=== PATIENT | male | born 1990 | race Caucasian/White ===

== ENCOUNTER 2017-10-26 19:47 | Emergency (ER) | payer BC, SELFPAY ==
[2017-10-26 19:48] VITALS: BP 161/118; PULSE 80; RESP 16; TEMP 37.1; O2SAT 99; BMI 33.9
--- NOTE | 2017-10-26 21:52 | CT_ITS ---
STUDY: CT LUMBAR SPINE WITHOUT CONTRAST REASON FOR EXAM: Male, 27 years old. BACK PAIN AFTER BENDING OVER AND FELL TO THE GROUND,PT HAS CHRONIC BACK PAIN RADIATION DOSAGE (If Supplied By Facility): CTDIvol = ( 16.17 ) mGy, DLP = ( 457.56 ) mGycm TECHNIQUE: The patient was scanned in a multi detector CT scanner. High resolution transaxial imaging was performed. Sagittal and coronal images were reconstructed. Individualized dose optimization techniques were used for this CT. COMPARISON: None FINDINGS: Normal lumbar lordosis. There is no substantial scoliosis. Normal vertebrae of the lumbar spine. L1-2: Normal endplates. Normal disc height and morphology. Normal bilateral facet joints. Normal central canal and bilateral lateral recesses. Normal bilateral intervertebral neural foramina. L2-3: Normal endplates. Normal disc height and morphology. Normal bilateral facet joints. Normal central canal and bilateral lateral recesses. Normal bilateral intervertebral neural foramina. L3-4: Normal endplates. Normal disc height and morphology. Normal bilateral facet joints. Normal central canal and bilateral lateral recesses. Normal bilateral intervertebral neural foramina. L4-5: Normal endplates. Normal disc height and morphology. Normal bilateral facet joints. Normal central canal and bilateral lateral recesses. Normal bilateral intervertebral neural foramina. L5-S1: Normal endplates. Normal disc height and morphology. Normal bilateral facet joints. Normal central canal and bilateral lateral recesses. Normal bilateral intervertebral neural foramina. Normal visualized paraspinous soft tissue structures. CT/Spine Lumbar without Contrast IMPRESSION: Normal unenhanced CT examination of the lumbar spine. Electronically Signed: Sixto Mathews MD at 22:49 EDT , Service support ,
--- NOTE | 2017-10-26 21:52 | CT_ITS ---
STUDY: CT ABDOMEN AND PELVIS WITHOUT CONTRAST REASON FOR EXAM: Male, 27 years old. BACK PAIN AFTER BENDING OVER AND FELL TO THE GROUND,PT HAS HX BACK PAIN RADIATION DOSAGE (If Supplied By Facility): CTDIvol = ( 13.58 ) mGy, DLP = ( 776.99 ) mGycm TECHNIQUE: Transaxial images were obtained from the dome of the diaphragm to the symphysis pubis without oral contrast, and without intravenous contrast. Sagittal and coronal images were reconstructed. Individualized dose optimization techniques were used for this CT. COMPARISON: None. FINDINGS: The visualized lung bases are unremarkable. The visualized portions of the heart are within normal limits. Normal liver. Normal gallbladder and extrahepatic biliary system. Normal spleen. Normal pancreas. Normal bilateral adrenal glands. Normal right kidney. Normal left kidney. Normal visualized stomach. Normal small intestine. Normal colon. The appendix is visualized and appears normal. Normal abdominal aorta. Normal inferior vena cava. Normal retroperitoneum. Normal urinary bladder. Normal visualized prostate gland. Normal abdominal wall. Normal osseous structures. CT/Abdomen/Pelvis without Cont IMPRESSION: Normal unenhanced CT of the abdomen and pelvis. Electronically Signed: Sixto Mathews MD at 22:54 EDT , Service support ,
[2017-10-26] MEDS: Ondansetron 4 MG/2 ML Vial IV (22:03)
[2017-10-26] MEDS: morphine 8 MG/ML Syringe IV (22:03)
--- NOTE | 2017-10-26 22:42 | ED.DCSUM_ITS ---
- ER Visit Summary Date of Service: 10/26/17 Chief Complaint: Back pain History of Present Illness: The patient is a 27 M presenting with back pain ?2 weeks. 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 He has pain in his low back radiating to both legs. Denies bowel or bladder incontinence. He tried Advil at home with minimal relief. Pain is in the lower back. He denies fever. Also complains of bilateral groin pain. Denies nausea or vomiting. Physical Examination: Vitals are stable. Patient is afebrile. Alert no acute distress. HEENT exam is unremarkable. Neck is supple. Lungs are clear and equal bilaterally. Heart is regular rate and rhythm. Abdomen is soft nontender nondistended. No guarding or rebound. Bilateral inguinal tenderness with no hernia palpated Back: diffuse lumbar and paraspinal tenderness, no stepoff Extremities are unremarkable. Skin is warm and dry. No focal neurologic deficit. Remainder of exam is unremarkable. Emergency Department Course and Treatment: Patient is given morphine, Zofran IV with improvement. CT lumbar spine shows no acute process. CT abdomen pelvis shows no acute process. Patient given short course of [place] and advised to continue nsaids at home. Advised to follow-up with his primary care physician. Advised return to ED for any worsening complaints. Disposition: Discharge home Impression: Lumbar strain This note was generated with [employer] [place] dictation software. It may contain incorrect words, spelling, and punctuation that were not noted in review of the chart prior to signing ED Disposition - Plan for ED Patient: Chief Complaint: Back Referrals: Shiraz Arredondo [Primary Care Provider] -
--- NOTE | 2017-10-26 23:07 | DCINST.ED_ITS ---
ED Disposition - Plan for ED Patient: Chief Complaint: Back Instructions: ED Neck Back Pain General Prescriptions: Hydrocodone Bitart/Apap 5-325 [[place] 5/325] 1 tablet PO Q6H PRN PRN 2 Days #8 tablet PRN Reason: Pain Referrals: Shiraz Arredondo [Primary Care Provider] -
[2017-10-26 23:16] VITALS: BP 163/101; PULSE 48; RESP 14; O2SAT 95
== END 2017-10-26 23:33 | disposition home or self-care (01) ==
PROVIDERS: Emergency Provider Emergency Medicine; Family Provider Nurse Practitioner Family; PCP Nurse Practitioner Family
DX: S39.012A Strain of muscle, fascia and tendon of lower back, initial encounter (principal); X50.1XXA Overexertion from prolonged static or awkward postures, initial encounter; Y93.9 Activity, unspecified; Y92.9 Unspecified place or not applicable; Y99.9 Unspecified external cause status
CPT/HCPCS: 72131; 74176; 96374; 96375; 99283; A4216; J2405

== ENCOUNTER 2019-11-20 20:41 | Emergency (ER) | payer OTHER, SELFPAY ==
[2019-11-20 20:42] VITALS: BP 89/40; PULSE 63; RESP 18; TEMP 36.3; O2SAT 100; BMI 34.4
--- NOTE | 2019-11-20 21:14 | CT_ITS ---
STUDY: CT ABDOMEN AND PELVIS WITHOUT CONTRAST REASON FOR EXAM: Male, 29 years old. N/V AND ABD PAIN SINCE NOON RADIATION DOSAGE (If Supplied By Facility): CTDIvol = ( 9.73 ) mGy, DLP = ( 530.04 ) mGycm TECHNIQUE: Transaxial images were obtained from the dome of the diaphragm to the symphysis pubis without oral contrast, and without intravenous contrast. Sagittal and coronal images were reconstructed. Individualized dose optimization techniques were used for this CT. COMPARISON: CT abdomen and pelvis without contrast October 26, 2017. FINDINGS: The visualized lung bases are unremarkable. Heart size is upper normal. Normal liver. The portal vein diameter is 14 mm. Normal gallbladder and extrahepatic biliary system. The diameter of the common bile duct is 5 mm. Normal spleen. Normal pancreas. Normal bilateral adrenal glands. Normal right kidney. Normal left kidney. No hydronephrosis. Normal visualized stomach. Normal small intestine. Normal colon. The short appendix or appendiceal stump is visualized (series 2 image 102, series 602 images 35-39) and appears normal. There are numerous stable, nonspecific subcentimeter mesenteric lymph nodes. Normal abdominal aorta. Normal inferior vena cava. There is stable nonspecific periaortic lymph nodes of the retroperitoneum. Normal urinary bladder. Normal visualized prostate gland. Normal abdominal wall. There is early disc height narrowing at L5-S1. CT/Abdomen/Pelvis without Cont IMPRESSION: Essentially normal unenhanced CT of the abdomen and pelvis, unchanged. Electronically Signed: Sanford Deleon MD at 22:41 EDT , Service support ,
[2019-11-20 21:28] LABS: Absolute Lymphocyte Count 0.55 X10^3/uL (0.83-4.51); Absolute Neutrophil Count 9.9 X10^3/uL (2.0-7.7); Basophil# 0.04 X10^3/uL; Basophil% 0.4 % (0-1); Eosinophil# 0.04 X10^3/uL; Eosinophils% 0.4 % (0-5); Hematocrit 49.1 % (40-54); Hemoglobin 16.4 g/dL (13.0-16.5); Lymphocyte # 0.55 X10^3/ul (4.0); Mean Corp Hgb Conc 33.4 g/dL (32-36); Mean Corpuscular Hgb 29.8 pg (27.0-32.0); Mean Corpuscular Volume 89.3 fL (80-94); Mean Platelet Vol. 10.3 fl (6.2-12.0); Monocyte# 0.46 X10^3/uL; Monocyte% 4.2 % (0-10); NRBC Flagged by Analyzer 0 % (0-5); Neutrophil # 9.92 X10^3/uL (2.7-7.7); Neutrophil % 89.7 % (47-70); POSITIVE DIFFERENTIAL YES; Platelet Count 226 K/mm3 (150-450); RBC Distribution Width CV 12.7 % (11.6-14.6); RBC Distribution Width SD 41.1 fl (35.1-43.9)
[2019-11-20 21:44] LABS: Anion Gap 6 (5-15); BUN 19 mg/dL (7-18); Calcium,Total 9.1 mg/dL (8.5-10.1); Chloride 110 mmol/L (98-107); Creatinine, Serum 1.12 mg/dL (0.70-1.30); EST Glomerular Filtration Rate 81 mL/min (>60); Est Glom Filt Rate - Afr Amer 98 mL/min (>60); Estimated Creatinine Clearance 98.67 ml/min; Glucose 114 mg/dL (74-106); Sodium Level 142 mmol/L (136-145)
[2019-11-20 21:46] LABS: Differential Indicated SCAN CRITERIA MET
[2019-11-20] MEDS: Morphine 4 MG/ML Syringe IV (21:56)
[2019-11-20] MEDS: 0.9% Normal Saline 1,000 ML 1000 ML IV (21:56)
[2019-11-20] MEDS: Ondansetron 4 MG/2 ML Vial IV (21:56)
[2019-11-20 22:04] LABS: Differential Comment SCANNED
[2019-11-20 22:32] LABS: Bacteria 0 SEEN /hpf (None Seen); Mucous, Urine 0 SEEN /hpf (<or=2+); Red Blood Cells-Urine 0 SEEN /hpf (0-5); Squamous Epithelial Cells - UA 0 SEEN /hpf (0-5)
[2019-11-20 22:34] LABS: Color, Urine Yellow (Yellow); Glucose, Dipstick Normal (Normal); Ketone-Dipstick 5 mg/dl (Negative); Leukocyte Esterase-Dipstick Negative /ul (Negative); Nitrite-Dipstick Negative (Negative); Occult Blood-Urine Negative /ul (Negative); Protein-Dipstick 15 mg/dl (Negative); Specific Gravity, Urine 1.025 (1.002-1.030); Urine Bilirubin Dipstick 1 mg/dL (Negative); Urine Clarity Clear (Clear); Urine Urobilinogen Normal (Normal)
[2019-11-20 22:41] LABS: White Blood Cells 0-5 SEEN /hpf (0-5)
--- NOTE | 2019-11-20 22:47 | ED.DCSUM_ITS ---
- ER Visit Summary Date of Service: 11/20/19 Chief Complaint: Abdominal pain History of Present Illness: The patient is a 29 M who sees Shiraz Williamson. He reports that he has lower abdominal pain that began at noon is gradually gotten worse. Said cramping, aching pain is now 10 at worst 3-10 currently. Is worsened by water. Unchanged with movement. Nothing makes this better. He has had nausea and vomited multiple times. No blood in his emesis. No diarrhea. His last bowel was yesterday. No dysuria or frequency. Patient denies sick contacts. Has not been camping out of the country. No possible bad food exposure. Does drink well water, but others at home do as well and they are not ill. No recent antibiotic use. Physical Examination: Vitals: Stable. Afebrile. General: Well-nourished and well-developed. Head: Normocephalic atraumatic. Neck: Supple, no lymphadenopathy. No JVD. Nontender. Cardiovascular: Regular rate and rhythm. No murmurs. Respiratory: No respiratory distress. Clear to auscultation bilaterally. Abdominal: Soft, mild suprapubic and right lower quadrant tenderness to palpation, nondistended, normal bowel sounds. No guarding, rebound, or peritoneal signs. Back: Nontender. Extremities: Nontender, no edema. Skin: Normal color, no rash. Neurologic: Alert and oriented ?3. Cranial nerves II through XII are intact. Normal strength and sensation. Psych: Normal affect. Test Results: CBC shows segmented neutrophils of 90 and lymphocytes of 5. Chem- 7 shows a chloride of 110, glucose 114, BUN of 19. UA is negative. Clinical Impression(s) from Imaging Studies Abdomen/Pelvis CT 11/20/19 21:14 IMPRESSION: Essentially normal unenhanced CT of the abdomen and pelvis, unchanged. Electronically Signed: Sanford Deleon MD at 22:41 EDT , Service support , Emergency Department Course and Treatment: Patient was treated morphine and Zofran IV. He is resting comfortably. He has had no further vomiting while here. Is given a liter normal saline. Treatment Plan: Patient be discharged with Zofran. Instructed follow-up his primary care physician 1 to 2 days if not improving. Return to the emergency department for any worsening symptoms. Disposition: To home in improved and stable condition. Impression: 1 1. Mesenteric adenitis. 2. Vomiting. This note was generated with [employer] dictation software. It may contain incorrect words, spelling, and punctuation that were not noted in review of the chart prior to signing ED Disposition - Plan for ED Patient: Disposition: Home or Assisted Living Instructions: ED Adenitis Mesenteric Prescriptions: Ondansetron [Zofran Odt] 4 mg PO Q8H PRN PRN #10 tab PRN Reason: Nausea Prescription Printed Referrals: Shiraz Arredondo, [facility] [employer] [facility] [Primary Care Provider] - 1-2 Days if not improving
[2019-11-20 23:03] VITALS: BP 110/60; PULSE 74; RESP 16; O2SAT 97
== END 2019-11-20 23:09 | disposition home or self-care (01) ==
LOC: ED 23:09
PROVIDERS: Emergency Provider Emergency Medicine; PCP Nurse Practitioner Family
DX: I88.0 Nonspecific mesenteric lymphadenitis (principal)
CPT/HCPCS: 74176; 80048; 81001; 85025; 96361; 96374; 96375; 99283; J7030; A4216; J2405

== ENCOUNTER 2021-02-04 16:45 | Emergency (ER) | payer OTHER, SELFPAY ==
[2021-02-04] VITALS (7 sets, daily range): BP systolic 136–166; BP diastolic 82–100; PULSE 65–81; RESP 16–20; TEMP 36.6; O2SAT 94–99; BMI 35.0
--- NOTE | 2021-02-04 17:16 | EKG12_ITS ---
Test Reason : CP Blood Pressure : / mmHG Vent. Rate : 069 BPM Atrial Rate : 069 BPM P-R Int : 204 ms QRS Dur : 106 ms QT Int : 378 ms P-R-T Axes : 006 -64 005 degrees QTc Int : 405 ms Normal sinus rhythm Left axis deviation Inferior infarct , age undetermined Anterior infarct , age undetermined , cannot be excluded Abnormal ECG Confirmed by WALTER WAN, QUIANA ([id number]), market editor STEPHANIE MESSINA ([id number]) on 02/06/2021 12:38:17 PM Referred By: PL/SHANE Confirmed By:QUIANA WATSON MD
[2021-02-04] MEDS: Aspirin 81 MG TAB.CHEW 324 MG PO (17:36)
--- NOTE | 2021-02-04 17:44 | RAD_ITS ---
INDICATION: chest pain EXAMINATION/TECHNIQUE: X-RAY - XR Chest 1 View COMPARISON: None. FINDINGS: The lungs are clear. The heart is borderline enlarged. No pleural effusion or pneumothorax. No acute osseous abnormalities. RAD/Chest 1 View (Portable) IMPRESSION: No acute radiographic abnormalities. Borderline cardiomegaly. Electronically Signed: Roberto Churchill MD at 18:22 EDT Tel , Service support ,
[2021-02-04 17:58] LABS: Absolute Lymphocyte Count 1.86 X10^3/uL (0.83-4.51); Absolute Neutrophil Count 5.7 X10^3/uL (2.0-7.7); Basophil# 0.08 X10^3/uL; Basophil% 0.9 % (0-1); Eosinophil# 0.37 X10^3/uL; Eosinophils% 4.1 % (0-5); Hematocrit 44.4 % (40-54); Hemoglobin 15.2 g/dL (13.0-16.5); Lymphocyte # 1.86 X10^3/ul (0.83-4.51); Lymphocyte % 20.6 % (19-41); Mean Corp Hgb Conc 34.2 g/dL (32-36); Mean Corpuscular Hgb 30.4 pg (27.0-32.0); Mean Corpuscular Volume 88.8 fL (80-94); Mean Platelet Vol. 10.4 fl (6.2-12.0); Monocyte# 0.95 X10^3/uL; Monocyte% 10.5 % (0-10); NRBC Flagged by Analyzer 0 % (0-5); Neutrophil # 5.74 X10^3/uL (2.7-7.7); Neutrophil % 63.3 % (47-70); Platelet Count 259 K/mm3 (150-450); RBC Distribution Width CV 12.5 % (11.6-14.6); RBC Distribution Width SD 40.6 fl (35.1-43.9); White Blood Count 9.1 K/mm3 (4.4-11.0)
[2021-02-04 18:00] LABS: Anion Gap 5 (5-15); BUN 15 mg/dL (7-18); BUN/Creat Ratio 15.4 RATIO (10-20); Calcium,Total 8.8 mg/dL (8.5-10.1); Chloride 108 mmol/L (98-107); Creatinine, Serum 0.97 mg/dL (0.70-1.30); EST Glomerular Filtration Rate 95 mL/min (>60); Est Glom Filt Rate - Afr Amer 115 mL/min (>60); Estimated Creatinine Clearance 116.44 ml/min; Glucose 98 mg/dL (74-106); Potassium 3.8 mmol/L (3.5-5.1); Sodium Level 140 mmol/L (136-145); Troponin-I HS 3.5 pg/mL (3.0-78.5)
--- NOTE | 2021-02-04 18:25 | ED.VIS.CHEST ---
HPI History of Present Illness Chief Complaint: Chest Pain Narrative Narrative: Patient complains of pain. He describes it as mid lower sternal. Is worse if he moves or twists. He feels a little bit as though it is hard to take of full breath but he is not really short of breath. He has no nausea vomiting or diaphoresis. Of note, this patient was kicked off his horse about 6 days ago. He has been sore everywhere since but has been slowly getting better. He does not recall this is a specific area of pain but he also does not state that he did not have this area of pain. Nothing specifically makes it better other than laying on his left side. He denies history of smoking. No hemoptysis. Patient evidently does have some family history of blood clots but the details are not known. He has no other known risk factor for blood clots. This was a concern of his that with. PFSH PFSH Home Medications naproxen [Naprosyn] 500 mg PO BID PRN #20 tab 02/04/21 [Rx Last Taken Unknown] Allergy/AdvReac Type Severity Reaction Status Date / Time No Known Allergies Allergy Verified 02/04/21 16:47 Surgical History H/O left knee surgery Hx of tonsillectomy Social History Smoking Status: Never smoker ROS ROS ED Constitutional Constitutional ED: Denies fever(s) or sweats Eyes Eyes: Reports none; Denies change in vision ENT ENT ED: Denies sore throat Cardiovascular Cardiovascular: Reports as per HPI Respiratory/Chest Respiratory/Chest: Denies cough, dyspnea on exertion or sputum Gastrointestinal Gastrointestinal: Denies abdominal pain, nausea or vomiting Genitourinary Genitourinary ED: Denies hematuria Musculoskeletal Musculoskeletal: Reports arthralgias and myalgias Integumentary Denies rash Neurologic Neurologic: Denies headache(s) Endocrine Endocrinology: Denies polydipsia or polyuria Hematologic/Lymphatic Hematologic/Lymphatic: Denies easy bleeding or easy bruising EXAM Physical Exam Const Vital Signs: 02/04/21 16:45 02/04/21 16:53 02/04/21 17:18 Temperature 97.8 F Temperature Source Temporal Pulse Rate 69 Respiratory Rate 16 16 Respiratory Effort Normal Non-Labored Respiratory Pattern Normal Blood Pressure 166/100 H Blood Pressure Mean 122 Pulse Ox 94 97 Oxygen Delivery Method Room Air Room Air 02/04/21 17:45 02/04/21 18:00 02/04/21 19:33 Temperature Temperature Source Pulse Rate 67 81 70 Respiratory Rate 20 H 16 16 Respiratory Effort Respiratory Pattern Blood Pressure 151/96 H 140/91 H 162/82 H Blood Pressure Mean 114 107 108 Pulse Ox 97 95 99 Oxygen Delivery Method Room Air Room Air Room Air 02/04/21 21:12 Temperature Temperature Source Pulse Rate 65 Respiratory Rate 16 Respiratory Effort Respiratory Pattern Blood Pressure 136/90 H Blood Pressure Mean 105 Pulse Ox 96 Oxygen Delivery Method Room Air Positive well nourished and well developed General Appearance ED: well developed and NAD HEENT normocephalic and atraumatic; Negative for trauma or tenderness Eyes PERRL Neck no lymphadenopathy and supple Chest Wall inspection of chest normal Chest Narrative: Mild lower anterior chest tenderness but no significant tenderness. No subcu air. No crepitance. Chest: tenderness Resp normal respiratory effort and clear to auscultation bilaterally Resp Narrative: No indication of pain with a deep breath. There is no pleuritic component. Effort and Inspection: respiratory distress Cardio regular rate and regular rhythm GI normal to inspection, nondistended, normoactive bowel sounds, soft to palpation and non-tender Back/Spine no CVA tenderness Extremity normal to inspection General Extremety ED: Negative for edema or tenderness General Extremity: Negative for edema Neuro oriented x3 Sensorium / Orientation: awake and alert Psych mental status grossly normal Skin no rashes or lesions noted MDM MDM MDM Narrative Medical decision making narrative: Patient's blood work showed just minimally elevated D-dimer. Troponin was negative. X-ray showed no acute process. There is mild cardiomegaly. CT scan was done that showed a little bit of atelectasis and fluid. The dye load was not ideal. There is no indication of PE though. No indication dissection. Patient is actually PERC negative for PE. We did obtain evaluation due to his concerns and family history. But I think he has a secondary reason to have his symptoms. This would be getting kicked off a horse and having pain since then. I think this is likely traumatic. I think he is okay to go home. He will be given nonsteroidals. We did have a talk regarding reasons to return. Lab Data Labs: Laboratory Results - last 24 hr 07/19/21 07/19/21 07/19/21 17:00 17:00 17:38 WBC 9.1 RBC 5.00 Hgb 15.2 Hct 44.4 MCV 88.8 MCH 30.4 MCHC 34.2 RDW Std Deviation 40.6 RDW Coeff of Andry 12.5 Plt Count 259 MPV 10.4 Immature Gran % (Auto) 0.600 Neut % (Auto) 63.3 Lymph % (Auto) 20.6 [place] % (Auto) 10.5 H Eos % (Auto) 4.1 Baso % (Auto) 0.9 Absolute Neuts (auto) 5.7 Absolute Lymphs (auto) 1.86 Nucleated RBC % 0 D-Dimer Quant (PE/DVT) 0.65 H* Sodium 140 Potassium 3.8 Chloride 108 H Carbon Dioxide 27.0 Anion Gap 5 BUN 15 Creatinine 0.97 Estim Creat Clear Calc 116.44 Est GFR (MDRD) Af Amer 115 Est GFR (MDRD) Non-Af 95 BUN/Creatinine Ratio 15.4 Glucose 98 Calcium 8.8 Troponin I High Sens 3.5 Radiography Diagnostic Testing: Radiology Impression Chest X-Ray 02/04/21 17:44 IMPRESSION: No acute radiographic abnormalities. Borderline cardiomegaly. Electronically Signed: Roberto Churchill MD at 18:22 EDT Tel , Service support , Chest CTA 02/04/21 19:14 IMPRESSION: No evidence of aortic dissection. Small partially loculated fluid collection on the left with associated compressive atelectasis of the left lower lobe. Moderate cardiomegaly. Electronically Signed: Roberto Churchill MD at 19:51 EDT Tel , Service support , Discharge Plan Triage Chief Complaint: Chest Pain ED Provider: John Zamudio Dx/Rx/DC Orders Clinical Impression: Chest pain, Injury while horseback riding Instructions: ED Chest Wall Contusion Prescriptions: New naproxen [Naprosyn] 500 mg tablet 500 mg PO BID PRN (Reason: pain) Qty: 20 RF: 0 Primary Care Provider: Shiraz Arredondo NP Referrals: Shiraz Arredondo CRYSTAL GAZER, [facility] [Primary Care Provider] - 3-5 Days if not improving Disposition Disposition: Home, Self Care
[2021-02-04 18:58] LABS: D-Dimer Quantitative (DVT/PE) 0.65 FEU/ug/m (0.27-0.49)
--- NOTE | 2021-02-04 19:14 | CT_ITS ---
INDICATION: chest pain EXAMINATION: CTA Chest WO/W Contrast Injection TECHNIQUE: Helically acquired images were obtained of the chest following administration of IV contrast. A radiation dose optimization technique was used for this scan. 3D postprocessing images including MIPS were reviewed. IV Contrast dosage and agent: IV 100mL [id number] COMPARISON: None. FINDINGS: Lungs: Unremarkable Mediastinum: The heart is moderately enlarged. No mediastinal, hilar or axillary adenopathy. The thoracic aorta is unremarkable. No evidence of dissection. Cannot assess for pulmonary emboli due to contrast timing bolus. Pleura: Small partially loculated fluid collection on the left with associated compressive atelectasis of the left lung base. Bones/Soft tissues: No suspicious osseous or soft tissue lesions Upper abdomen: No visualized abnormalities in the upper abdomen. CT/CTA Chest W/WO Contrast IMPRESSION: No evidence of aortic dissection. Small partially loculated fluid collection on the left with associated compressive atelectasis of the left lower lobe. Moderate cardiomegaly. Electronically Signed: Roberto Churchill MD at 19:51 EDT Tel , Service support ,
== END 2021-02-04 21:51 | disposition home or self-care (01) ==
PROVIDERS: Emergency Provider Emergency Medicine; PCP Nurse Practitioner Family
DX: S20.219A Contusion of unspecified front wall of thorax, initial encounter (principal); V80.010A Animal-rider injured by fall from or being thrown from horse in noncollision accident, initial encounter; Y93.52 Activity, horseback riding; Y92.9 Unspecified place or not applicable; Y99.9 Unspecified external cause status; Z79.1 Long term (current) use of non-steroidal anti-inflammatories (NSAID)
CPT/HCPCS: 71045; 71275; 80048; 84484; 85025; 85379; 93005; 99285; Q9967; A4216

== ENCOUNTER 2021-05-20 12:59 | Emergency (ER) | payer OTHER, SELFPAY ==
[2021-05-20 13:00] VITALS: BP 141/106; PULSE 92; RESP 18; TEMP 35.8; O2SAT 94; BMI 33.5
[2021-05-20 14:46] VITALS: BP 157/105; PULSE 64; PULSE 67; RESP 18; RESP 21; TEMP 36.8; O2SAT 98
--- NOTE | 2021-05-20 15:16 | RAD_ITS ---
INDICATION: cough sob fever EXAMINATION/TECHNIQUE: X-RAY - XR Chest 1 View COMPARISON: 02/04/2021. FINDINGS: Scattered patchy airspace opacities. The heart is enlarged. No pleural effusion or pneumothorax. No acute osseous abnormalities. RAD/Chest 1 View (Portable) IMPRESSION: Scattered patchy airspace opacities concerning for pneumonia. Electronically Signed: Roberto Churchill MD at 16:52 EDT Tel , Service support ,
--- NOTE | 2021-05-20 15:16 | ED.VIS.DYS ---
HPI History of Present Illness Chief Complaint: Shortness of Breath Informant: patient Onset/Context/Timing Onset: Weeks (1) Context: gradual and onset Timing: Continuous Quality: Positive for Dyspnea on exertion Current Severity: Moderate Maximum Severity: Moderate Worsened by: Exertion and Coughing Relieved by: Rest Associated Symptoms cough Chest Pain: Positive for None Narrative Narrative: Patient presenting with respiratory symptoms, headaches, some diarrhea myalgias, fevers, chills, for the past week. He has also had loss of taste and smell. He has not been vaccinated for COVID-19. He has not done a test for Covid yet. He has no other medical problems. PFS PFS Medical History no medical history no medical history Home Medications azithromycin See Rx Instructions .ROUTE .COMPLEX #6 tab 05/20/21 [Rx Last Taken Unknown] Allergy/AdvReac Type Severity Reaction Status Date / Time No Known Allergies Allergy Verified 02/04/21 16:47 Surgical History (Updated 05/20/21 @ 14:48 by Francisco Simmons) H/O left knee surgery Hx of tonsillectomy Social History Smoking Status: Never smoker ROS ROS ED Constitutional Constitutional ED: Reports body ache(s), chills, fatigue, fever(s), headache(s) and malaise Eyes Eyes: Denies change in vision or diplopia ENT ENT ED: Denies rhinorrhea or sore throat Cardiovascular Cardiovascular: Denies chest pain or palpitations Respiratory/Chest Respiratory/Chest: Reports cough, dyspnea and dyspnea on exertion Gastrointestinal Gastrointestinal: Reports diarrhea; Denies abdominal pain, nausea or vomiting Genitourinary Genitourinary ED: Denies dysuria or hematuria Musculoskeletal Musculoskeletal: Denies back pain or neck pain Integumentary Denies abscess or rash Neurologic Neurologic: Reports headache(s); Denies paresthesias or weakness Psychiatric Psychiatric: Denies anxiety or suicidal thoughts EXAM Physical Exam Const Vital Signs: 05/20/21 13:00 05/20/21 14:46 05/20/21 16:23 Temperature 96.5 F L 98.3 F Temperature Source Temporal Oral Pulse Rate 92 67 67 Respiratory Rate 18 18 22 H Respiratory Effort Short of Breath Blood Pressure 141/106 H 157/105 H 150/96 H Blood Pressure Mean 117 122 114 Pulse Ox 94 98 95 Oxygen Delivery Method Room Air Room Air Room Air Positive well nourished and well developed Constitutional Narrative: Well-appearing, no distress General Appearance ED: well developed and NAD HEENT Reports moist mucous membranes normocephalic and atraumatic Eyes PERRL and EOMs intact bilaterally Neck full ROM and supple Resp normal respiratory effort and clear to auscultation bilaterally Cardio regular rate, regular rhythm and no murmurs Rate: Negative for tachycardic GI non-tender and non-distended Auscultation: normoactive bowel sounds Palpation: soft Back/Spine no CVA tenderness General Back: other FROM Extremity normal to inspection and no calf tenderness General Extremety ED: Negative for edema, pulses abnormal or tenderness General Extremity: Negative for edema or pulses abnormal Neuro oriented x3, CN's II-XII intact bilaterally and no sensory deficits noted Sensorium / Orientation: awake and alert Motor Exam: strength 5/5 throughout Skin no rashes or lesions noted and no wounds MDM MDM MDM Narrative Medical decision making narrative: Rapid Covid was obtained but is negative. I highly suspect this is Covid pneumonia causing his symptoms, given he has the classic symptoms we have been seeing with a delta variant, and I suspect this is a false negative due to the patient presenting after about 1 week of symptoms, he currently is on day #8, approximately. His BMI would make him a monoclonal antibody infusion candidate. However we need a positive test. Therefore I am sending an outpatient PCR test. His pulse ox is not low right now, even with ambulating he was at 90% and mostly is 94-98% on room air at rest. I see no indication for admission at this time. I did advise him to isolate as if he has Covid, and unfortunately the PCR has been taking 3 days or so to return due to volume of testing, and it is unlikely he will have a positive test prior to the 10-day richard and then will not to be a candidate for monoclonal antibody infusion. I recommend that if he does test positive before day 10, he should call his doctor for a referral to the monoclonal antibody infusion clinic here. Advised to monitor his pulse oximetry at home, and will place him on azithromycin in case this is atypical pneumonia. Lab Data Attestation: I reviewed the patient's lab results. Radiography Diagnostic Testing: Clinical Impression(s) from Imaging Studies Chest X-Ray 05/20/21 15:16 IMPRESSION: Scattered patchy airspace opacities concerning for pneumonia. Electronically Signed: Roberto Churchill MD at 16:52 EDT Tel , Service support , Discharge Plan Triage Chief Complaint: Shortness of Breath ED Provider: Alberto Otero Dx/Rx/DC Orders Clinical Impression: Atypical pneumonia, Suspected COVID-19 virus infection Instructions: Coronavirus Disease 2019 (COVID-19): Caring for Yourself or Others Prescriptions: New azithromycin 250 mg tablet See Rx Instructions .ROUTE .COMPLEX Qty: 6 RF: 0 Primary Care Provider: Shiraz Arreodndo NP Referrals: Shiraz Arredondo NP, [facility] [Primary Care Provider] - (Assumes possible contact your PCP if your PCR Covid test returns positive, since you will potentially be a candidate for monoclonal antibody infusion at that time but you must do this before you have had the illness for 10 days.) Activity Restrictions/Additional Instructions: Assume that you have COVID-19 until proven otherwise. Try to get a home portable pulse oximeter and closely watch your oxygen levels periodically. If you stay below 90% for more than a minute or so, and/or you are feeling like your breathing is getting worse, return to the emergency department for further evaluation. Disposition Disposition: Home, Self Care
[2021-05-20 15:40] VITALS: O2SAT 96
[2021-05-20] MEDS: Ketorolac 30 MG/ML Syringe IV (15:46)
[2021-05-20 16:23] VITALS: BP 150/96; PULSE 67; RESP 22; O2SAT 95
[2021-05-20] MEDS: 0.9% Normal Saline 1,000 ML 500 ML IV (16:23)
[2021-05-20 17:57] VITALS: BP 134/84; PULSE 68; RESP 18; O2SAT 94
[2021-05-20 18:51] LABS: Probe Check PASS
== END 2021-05-20 18:06 | disposition home or self-care (01) ==
PROVIDERS: Emergency Provider Emergency Medicine; PCP Nurse Practitioner Family
DX: J18.9 Pneumonia, unspecified organism (principal); Z20.822 Contact with and (suspected) exposure to COVID-19
CPT/HCPCS: 71045; 87426; 87635; 99282; J7030; U0005; A4216; U0003